=== PATIENT | female | born 1975 | race Caucasian/White ===

== ENCOUNTER 2018-09-29 13:06 | Emergency (ER) | payer OTHER ==
[~2018-09-29] VITALS: Ht 175.3 cm; Wt 77.3 kg
[2018-09-29] MEDS ORDERED: LEVEMIR FLEX100 U/ML SQ (14:16)
[2018-09-29] MEDS ORDERED: NOVOLOG 100U100 U/M1 SQ (14:16)
[2018-09-29] MEDS ORDERED: VICTOZA6 MG/ML SQ (14:17)
[2018-09-29] MEDS ORDERED: GLUCOPHAGE500 MG/TAB PO (14:18)
[2018-09-29] MEDS ORDERED: SYNTHROID0.05 MG/TA PO (14:18)
[2018-09-29] MEDS ORDERED: PROAIR HFA0.09 MG/AC IH (15:03)
[2018-09-29] MEDS ORDERED: ZOFRAN ODT4 MG PO (15:03)
[2018-09-29] MEDS ORDERED: TAMIFLU 75MG75 MG PO (15:03)
[2018-09-29 15:14] VITALS: BP 120/70; PULSE 115; TEMP 101
== END 2018-09-29 15:14 | disposition home or self-care (01) ==
LOC: COL.ER 13:06
DX: J10.1 Influenza due to other identified influenza virus with other respiratory manifestations (principal); E78.5 Hyperlipidemia, unspecified; E11.9 Type 2 diabetes mellitus without complications; F17.210 Nicotine dependence, cigarettes, uncomplicated; Z79.4 Long term (current) use of insulin

== ENCOUNTER 2019-07-10 20:55 | Emergency (ER) | payer OTHER ==
[~2019-07-10] VITALS: Ht 177.8 cm; Wt 78.6 kg
[~2019-07-10 20:55] MED LIST: GLUCOPHAGE500 MG/TAB PO; LEVEMIR FLEX100 U/ML SQ; NOVOLOG 100U100 U/M1 SQ; PROAIR HFA0.09 MG/AC IH; SYNTHROID0.05 MG/TA PO; TAMIFLU 75MG75 MG PO; VICTOZA6 MG/ML SQ; ZOFRAN ODT4 MG PO
[2019-07-10] MEDS ORDERED: TRULICITY1.5 MG/0.5 SQ (21:04)
[2019-07-10 21:13] LABS: BASO # 0.1 (0.0-0.2); BASO % 0.6 % (0.0-2.0); EOS # 0.2 (0.0-0.7); EOS % 1.9 % (0-4.0); GRAN # 6.4 (1.4-6.5); GRAN % 59.3 % (42.2-75.2); HEMATOCRIT 41.8 % (37.0-47.0); HEMOGLOBIN 14.5 g/dl (12.5-16.0); LYMPH # 3.5 (1.2-3.4); LYMPH % 31.8 % (20.0-51.0); MEAN CELL VOLUME 92 fl (80.0-100.0); MEAN CORPUSCULAR HEMOGLOBIN 32 pg (27.0-31.0); MEAN CORPUSCULAR HGB CONC 35 g/dl (33.0-37.0); MEAN PLATELET VOLUME 10.7 fl (7.4-10.4); MONO # 0.7 (0.1-0.6); PLATELET COUNT 239 K/mm3 (130-400); RED BLOOD COUNT 4.54 M/mm3 (4.10-5.30); REDCELL DISTRIBUTION WIDTH-CV 12.2 % (11.5-14.5)
[2019-07-10 21:20] LABS: ACETONE,SERUM NEGATIVE
[2019-07-10 21:23] LABS: ALANINE AMINOTRANSFERASE 9 U/L (9-52); ALKALINE PHOSPHATASE 75 U/L (50-136); ANION GAP 9 mmol/L (7-16); AST,SGOT 19 U/L (15-37); BILIRUBIN,TOTAL 0.4 mg/dL (0.0-1.0); BLOOD UREA NITROGEN 10 mg/dL (7-17); C-REACTIVE PROTEIN 2.2 mg/dL (0.0-0.9); CARBON DIOXIDE 24 mmol/L (22-30); CHLORIDE 102 mmol/L (98-107); CREATININE, serum 0.64 (0.52-1.25); GLUCOSE 396 mg/dL (74-106); POTASSIUM 4.2 mmol/L (3.4-5.0); SODIUM 134 mmol/L (137-145); TOTAL PROTEIN 7.4 gm/dL (6.4-8.2)
[2019-07-10 22:10] LABS: COLLECTION METHOD CLEAN CATCH
[2019-07-10 22:16] LABS: PH 5 (5-8); SQUAMOUS EPITHELIAL 0-2 /hpf; URINE APPEARANCE Clear; URINE BACTERIA None Seen /hpf; URINE BILIRUBIN Negative (NEGATIVE); URINE BLOOD Negative (NEGATIVE); URINE COLOR Yellow; URINE GLUCOSE 3+ (NEGATIVE); URINE KETONE Negative (NEGATIVE); URINE LEUKOCYTE ESTERASE Negative (NEGATIVE); URINE NITRATE Negative (NEGATIVE); URINE PROTEIN(semi-quant) Negative (NEGATIVE); URINE RBC 0-2 /hpf; URINE UROBILINOGEN Negative (NEGATIVE)
[2019-07-10 22:59] VITALS: BP 118/75; PULSE 87; TEMP 98
== END 2019-07-10 23:03 | disposition home or self-care (01) ==
LOC: COL.ER 20:55
PROVIDERS: Emergency Medicine
DX: E11.9 Type 2 diabetes mellitus without complications (principal); F17.210 Nicotine dependence, cigarettes, uncomplicated
CPT/HCPCS: J1815; J7030

== ENCOUNTER 2019-11-14 22:58 | Inpatient (IN) | payer OTHER ==
[~2019-11-14] VITALS: Ht 175.3 cm; Wt 79.9 kg
[~2019-11-14 22:58] MED LIST changes: +ASPIRIN 32325 MG/TAB PO; +CELEXA40 MG PO; +DESYREL 50MG50 MG PO; +DOXYCYCLINE 10100 MG PO; +FLAGYL500 MG PO; +FLEXERIL 1010 MG/TAB PO; +FLONASEALLERGY NS; +GLUCOPHAGE1000 MG PO; +GLUCOTROL 5M5 MG/TAB PO; +LOPID 600M600 MG/TAB PO; +MINIPRESS 1M1 MG/CAP PO; +MOBIC15 MG PO; +NAPROSYN500 MG PO; +NORCO 325 MG-51 TAB PO; +TRULICITY1.5 MG/0.5 SQ; +ZYRTEC 10MG10 MG PO
[2019-11-14 23:58] LABS: BASO # 0.1 (0.0-0.2); BASO % 0.3 % (0.0-2.0); EOS # 0.2 (0.0-0.7); GRAN # 14.6 (1.4-6.5); GRAN % 81.2 % (42.2-75.2); HEMATOCRIT 42.1 % (37.0-47.0); HEMOGLOBIN 14.7 g/dl (12.5-16.0); LYMPH % 11.3 % (20.0-51.0); MEAN CELL VOLUME 92 fl (80.0-100.0); MEAN CORPUSCULAR HEMOGLOBIN 32 pg (27.0-31.0); MEAN CORPUSCULAR HGB CONC 35 g/dl (33.0-37.0); MEAN PLATELET VOLUME 9.7 fl (7.4-10.4); MONO % 5.6 % (1.7-9.3); PLATELET COUNT 337 K/mm3 (130-400); RED BLOOD COUNT 4.59 M/mm3 (4.10-5.30); REDCELL DISTRIBUTION WIDTH-CV 11.8 % (11.5-14.5)
[2019-11-15] VITALS (11 sets, daily range): BP systolic 98–147; BP diastolic 53–75; PULSE 82–112; TEMP 98.7–103
[2019-11-15 00:14] LABS: ACETONE,SERUM NEGATIVE
[2019-11-15 00:16] LABS: ALANINE AMINOTRANSFERASE 15 U/L (4-34); ALBUMIN 3.9 gm/dL (3.5-5.0); ALKALINE PHOSPHATASE 117 U/L (50-136); ANION GAP 10 mmol/L (7-16); AST,SGOT 24 U/L (15-37); BILIRUBIN,TOTAL 0.5 mg/dL (0.0-1.0); BLOOD UREA NITROGEN 11 mg/dL (7-17); CARBON DIOXIDE 23 mmol/L (22-30); CHLORIDE 97 mmol/L (98-107); CREATININE, serum 0.53 (0.52-1.25); SODIUM 130 mmol/L (137-145)
[2019-11-15 00:17] LABS: GLUCOSE 511 mg/dL (74-106)
[2019-11-15 00:26] LABS: C-REACTIVE PROTEIN 25.8 mg/dL (0.0-0.9)
[2019-11-15 03:34] LABS: PROTHROMBIN TIME 11.9 SECONDS (9.7-12.8)
--- NOTE | 2019-11-15 05:26 | NUR ---
Report received from Catalina at 0335. Patient arrived in ICU at 0400 via wheelchair. Patient pleasant and cooperative, moved self to bed.
--- NOTE | 2019-11-15 08:22 | NUR ---
Report received from Thao LEA and care resumed. Assessment complete. Pt with temp of [address]ed to call Dr Mcdaniel, no answer and unable to leave message at this time. No am labs ordered as well. Will continue to follow.
[2019-11-15 08:49] LABS: MEAN CELL VOLUME 92 fl (80.0-100.0); MEAN CORPUSCULAR HGB CONC 34 g/dl (33.0-37.0); MEAN PLATELET VOLUME 9.9 fl (7.4-10.4); PLATELET COUNT 320 K/mm3 (130-400); RED BLOOD COUNT 3.83 M/mm3 (4.10-5.30); REDCELL DISTRIBUTION WIDTH-CV 11.9 % (11.5-14.5)
[2019-11-15 08:50] LABS: HEMATOCRIT 35.4 % (37.0-47.0); HEMOGLOBIN 12.1 g/dl (12.5-16.0); MEAN CORPUSCULAR HEMOGLOBIN 32 pg (27.0-31.0)
[2019-11-15 08:55] LABS: ALBUMIN 3.3 gm/dL (3.5-5.0); BILIRUBIN,TOTAL 0.4 mg/dL (0.0-1.0); CALCIUM 8.7 mg/dL (8.4-10.2); CREATININE, serum 0.55 (0.52-1.25); POTASSIUM 3.5 mmol/L (3.4-5.0)
--- NOTE | 2019-11-15 09:57 | NUR ---
Vancomycin Initial Dosing Pharmacy Note Ordering provider: MD Jonas Indication/duration: vulvular abcess Relevant comorbidities: DM LABS: WBC 18, SCr 0.53, CrCl > 100, micro from 11/02: GBS, S.aureus, Acinetobacter lwoffi Recommendation: vancomycin ~12 mg/kg Loading dose: 2 g given in ED/ICU Maintenance dose: 1 gram every 12 hours Trough goal: 15 ug/mL. trough 11/16 @ 0430
--- NOTE | 2019-11-15 12:16 | NUR ---
Pt to OR at this time. Report called to Izzy LEA on surgical floor. Pt to transfer to room 348 post op.
--- NOTE | 2019-11-15 19:28 | NUR ---
Patient has done well post op. Resting now. Pain managed with PO percocet & motrin. She has tolerated diabetic diet, treated with Insulin per orders. Denies nausea. Patient was up to the bathroom & voided. Mesh underwear & pad on. Ivf & antibioitcs to Shanice per orders. Scds. Bedside report to Karen LEA
--- NOTE | 2019-11-15 19:30 | NUR ---
Report received. Assumed care for weight shifter. Assessment complete. VS stable. A&Ox3. Stand by assist to bathroom. Very tearful-states the pain is out of control-requesting pain medication change. Right labia slightly swollen-packing in place. Small amount of blood drainage noted to pad. Denies shortness of breath/nausea. Rating pain 7/10 on pain scale states it feels like burning/throbbing and sharpness continuously. Dr Lopez notified of inadequate pain control with current Percocet order-new orders received for Davis. Denies needs. Instructed on need for stool specimen. Verbalizes understanding. WIll monitor.
[2019-11-15 22:46] LABS: CLOSTRIDIUM DIFF A/B NEG; CLOSTRIDIUM DIFF A/B INTERP No C.diff present
[2019-11-16] VITALS (661 sets, daily range): BP systolic 101–139; BP diastolic 50–72; PULSE 80–119; TEMP 97.8–102.6; O2SAT 80–100
--- NOTE | 2019-11-16 08:00 | NUR ---
Patient was assessed by this nurse with the following data at 8:00 AM: Alert & Oriented x 4; able to move extremities; hand secure software assessor were equal; Right labia had edema; Temp was warm, dry and normal; Had a regular heart rhythm, rate and sound; pulses were easy to palpate to both dorsalis pedis and radial pulses; Had good cap refill; Respirations were unlabored, normal rate and depth and patter was regular and unlabored; lung allen clear; abdomen was rounded and soft and all bowel sounds were audible; she had had no nausea and was passing gas; she was voiding with no difficulty; She had crusting to all over skin in spots due to her psoriasis; Right labia had the packing in place.
[2019-11-16 08:01] LABS: BASO % 0.4 % (0.0-2.0); EOS # 0.2 (0.0-0.7); GRAN # 7.6 (1.4-6.5); GRAN % 73.2 % (42.2-75.2); HEMOGLOBIN 10.8 g/dl (12.5-16.0); LYMPH # 1.9 (1.2-3.4); LYMPH % 18.1 % (20.0-51.0); MEAN CELL VOLUME 95 fl (80.0-100.0); MEAN CORPUSCULAR HEMOGLOBIN 31 pg (27.0-31.0); MEAN CORPUSCULAR HGB CONC 33 g/dl (33.0-37.0); MEAN PLATELET VOLUME 9.9 fl (7.4-10.4); MONO # 0.6 (0.1-0.6); MONO % 5.8 % (1.7-9.3); PLATELET COUNT 305 K/mm3 (130-400); RED BLOOD COUNT 3.49 M/mm3 (4.10-5.30); REDCELL DISTRIBUTION WIDTH-CV 12.1 % (11.5-14.5)
[2019-11-16 08:03] LABS: HEMATOCRIT 33.2 % (37.0-47.0)
[2019-11-16 08:18] LABS: ALBUMIN 2.8 gm/dL (3.5-5.0); BILIRUBIN,TOTAL 0.3 mg/dL (0.0-1.0); CALCIUM 8.2 mg/dL (8.4-10.2); CREATININE, serum 0.5 (0.52-1.25); POTASSIUM 3.2 mmol/L (3.4-5.0); TOTAL PROTEIN 6.1 gm/dL (6.4-8.2)
[2019-11-16 09:08] LABS: MAGNESIUM 1.7 mg/dL (1.6-2.3)
[2019-11-16 09:30] LABS: ARTERIAL BLD GAS O2 SATURATION 89.3 % (92-100); ARTERIAL BLOOD GAS BASE EXCESS -3.2 (-2-2); ARTERIAL BLOOD GAS HCO3 20.1 meq/L (22-26); ARTERIAL BLOOD GAS PCO2 30.9 mmHg (35-45); ARTERIAL BLOOD GAS PO2 52.4 mmHg (80-100); ARTERIAL BLOOD GAS pH 7.43 (7.35-7.45)
[2019-11-16 09:39] LABS: TSH w REFLEX 7.48 uIU/mL (0.465-4.680)
[2019-11-16 10:09] LABS: CREATINE KINASE 174 U/L (30-135); LACTATE DEHYDROGENASE 558 U/L (313-618)
--- NOTE | 2019-11-16 10:38 | NUR ---
Patient was seen by OB this morning and they did a dressing removal. After removal of dressing, this nurse received a call from Tele with report of irregular HR. This was communicated to Charge Nurse of which called the hospitalist to provide an update. VS unstable with elevated HR and BP as well has a temp of 100.0. Patient was given Morphine for pain with little effect. Patient began having chills and pain. Dr. Burnette saw patient see new orders given for more pain pills and for anxiety. Patient tolerated well. Temp then went up to 102.6 and this was reported to Dr. Burnette and tylenol was ordered and given to patient. This nurse then received orders for her to be transferred to ICU. Patient was transported with clean sheet over her, she wore a mask over her oxygen rebreather mask. Patient had a low Pulse Ox reading and was on 15 Liters Mask Rebreather upon transfer. Patient's belongins including her dentures, phone machine silk screen printer, phone and clothing and notes were sent with her to ICU. This nurse gave report to ICU #4 nurse.
--- NOTE | 2019-11-16 10:58 | NUR ---
Notified Dr. Lopez's clinic nurse re: testing for COVID. She reports she will pass message on to Dr. Lopez.
[2019-11-16 11:41] LABS: COLLECTION METHOD CATHETER
[2019-11-16 11:48] LABS: MUCOUS Present /lpf; PH 5 (5-8); SQUAMOUS EPITHELIAL 0-2 /hpf; URINE APPEARANCE Hazy; URINE BACTERIA None Seen /hpf; URINE BILIRUBIN Negative (NEGATIVE); URINE BLOOD Negative (NEGATIVE); URINE COLOR Yellow; URINE GLUCOSE Negative (NEGATIVE); URINE KETONE Negative (NEGATIVE); URINE LEUKOCYTE ESTERASE Negative (NEGATIVE); URINE NITRATE Negative (NEGATIVE); URINE PROTEIN(semi-quant) Negative (NEGATIVE); URINE RBC 0-2 /hpf; URINE UROBILINOGEN Negative (NEGATIVE)
[2019-11-16 12:11] LABS: TRICYCLIC ANTIDEPRESS URINE NEGATIVE
--- NOTE | 2019-11-16 13:10 | NUR ---
SW contacted the patient to discuss discharge plan. The patient lives in [place] with her son, Jean-Claude Luna (ph#[phone]), and Jean-Claude's girlfriend. She reports independence with ADLs and does not have any DME. The patient receives primary care at the [facility] and states that she believes she is on the blue team. She receives her medications at [facility] and she reports no difficulties obtaining her meds. The patient does not have advanced directives completed. She is not . She states that she has two children. Jean-Claude and her daughter Valerie. She states that Valerie lives in [place]. The patient plans to return back home with her son upon discharge. The patient is a PUI for [facility]. SW to continue to follow.
--- NOTE | 2019-11-16 19:18 | NUR ---
Report given to Chely LEA and care transfered.
[2019-11-16 21:16] LABS: POTASSIUM 4.2 mmol/L (3.4-5.0)
--- NOTE | 2019-11-16 23:15 | NUR ---
patient called out complaining of SOB, was desatting with O2 saturation at 80% and heart rate in the low 100's pt complaining of left shoulder pain. patient stated she was trying to move in bed and got short of breath and anxious. CAlled RT who gave her two puffs of albuterol. She also was c/o of labial pain so she got some prn IV morphine. Michelle was called and notified of situation, was the doctor I spoke to. He said to continue to monitor and to call back if she got worse. I did not feel comfortable with that so SANTI Glass was called and she ordered a CT of chest and an ABG.
[2019-11-17] VITALS (1080 sets, daily range): BP systolic 92–141; BP diastolic 50–77; PULSE 81–112; TEMP 98.6–100.2; O2SAT 38–100
[2019-11-17 00:29] LABS: ARTERIAL BLD GAS O2 SATURATION 92.7 % (92-100); ARTERIAL BLD GAS TCO2 CT 23.7; ARTERIAL BLOOD GAS BASE EXCESS -0.9 (-2-2); ARTERIAL BLOOD GAS HCO3 22.6 meq/L (22-26); ARTERIAL BLOOD GAS PCO2 34.9 mmHg (35-45); ARTERIAL BLOOD GAS PO2 62.5 mmHg (80-100); ARTERIAL BLOOD GAS pH 7.43 (7.35-7.45)
[2019-11-17 01:04] LABS: BASO % 0.4 % (0.0-2.0); EOS # 0.1 (0.0-0.7); EOS % 1.3 % (0-4.0); GRAN # 7.7 (1.4-6.5); GRAN % 85.6 % (42.2-75.2); HEMATOCRIT 46.5 % (37.0-47.0); LYMPH # 0.7 (1.2-3.4); LYMPH % 7.3 % (20.0-51.0); MEAN CELL VOLUME 94 fl (80.0-100.0); MEAN CORPUSCULAR HEMOGLOBIN 31 pg (27.0-31.0); MEAN CORPUSCULAR HGB CONC 33 g/dl (33.0-37.0); MEAN PLATELET VOLUME 9.4 fl (7.4-10.4); MONO # 0.5 (0.1-0.6); PLATELET COUNT 255 K/mm3 (130-400); RED BLOOD COUNT 4.95 M/mm3 (4.10-5.30); REDCELL DISTRIBUTION WIDTH-CV 12.1 % (11.5-14.5)
[2019-11-17 01:08] LABS: HEMOGLOBIN 15.5 g/dl (12.5-16.0)
[2019-11-17 01:24] LABS: ALBUMIN 2.8 gm/dL (3.5-5.0); BILIRUBIN,TOTAL 0.4 mg/dL (0.0-1.0); CALCIUM 8.6 mg/dL (8.4-10.2); CREATININE, serum 0.46 (0.52-1.25); POTASSIUM 3.8 mmol/L (3.4-5.0)
[2019-11-17 02:00] LABS: TROPONIN-I < 0.012 ng/mL (0.000-0.035)
--- NOTE | 2019-11-17 02:00 | NUR ---
patient back from CT of chest. SANTI Glass called to discuss case with him. We gave 40mg of iv lasix, some ativan and will continue to galilea.
--- NOTE | 2019-11-17 06:20 | NUR ---
Kiera has had low blood pressures with systolics in the 80-90's and MAPS below 65, Maria Luisa HANCOCK was contacted. Patient otherwise stable with HR in the 80's, now on 5L oxymask and breathing at a rate in the 20's. Will now start patient on a levophed gtt.
[2019-11-17 06:25] LABS: ARTERIAL BLD GAS O2 SATURATION 95.8 % (92-100); ARTERIAL BLD GAS TCO2 CT 24.6; ARTERIAL BLOOD GAS BASE EXCESS -0.2 (-2-2); ARTERIAL BLOOD GAS HCO3 23.5 meq/L (22-26); ARTERIAL BLOOD GAS PCO2 35.8 mmHg (35-45); ARTERIAL BLOOD GAS PO2 76.2 mmHg (80-100); ARTERIAL BLOOD GAS pH 7.44 (7.35-7.45)
[2019-11-17 07:02] LABS: ALBUMIN 3.1 gm/dL (3.5-5.0); BILIRUBIN,TOTAL 0.5 mg/dL (0.0-1.0); CALCIUM 8.7 mg/dL (8.4-10.2); CREATININE, serum 0.57 (0.52-1.25); PHOSPHOROUS 3.7 mg/dL (2.5-4.5); POTASSIUM 3.3 mmol/L (3.4-5.0); TOTAL PROTEIN 6.6 gm/dL (6.4-8.2)
[2019-11-17 07:05] LABS: BASO # 0.1 (0.0-0.2); BASO % 0.4 % (0.0-2.0); EOS # 0.2 (0.0-0.7); EOS % 1.9 % (0-4.0); GRAN # 9.4 (1.4-6.5); LYMPH # 1.4 (1.2-3.4); LYMPH % 12.1 % (20.0-51.0); MEAN CELL VOLUME 96 fl (80.0-100.0); MEAN CORPUSCULAR HGB CONC 33 g/dl (33.0-37.0); MEAN PLATELET VOLUME 9.8 fl (7.4-10.4); MONO # 0.8 (0.1-0.6); MONO % 6.3 % (1.7-9.3); PLATELET COUNT 335 K/mm3 (130-400); RED BLOOD COUNT 3.51 M/mm3 (4.10-5.30); REDCELL DISTRIBUTION WIDTH-CV 12.2 % (11.5-14.5)
[2019-11-17 07:08] LABS: HEMATOCRIT 33.8 % (37.0-47.0); HEMOGLOBIN 11.1 g/dl (12.5-16.0); MEAN CORPUSCULAR HEMOGLOBIN 32 pg (27.0-31.0)
--- NOTE | 2019-11-17 07:38 | NUR ---
Vancomycin Follow-up Pharmacy Note Current regimen: vancomycin 1g q12h Vancomycin trough: 5.2 Adjustments: give additional 500 mg now and increase to vancomycin 1.5 g q8h.
--- NOTE | 2019-11-17 07:45 | NUR ---
report given to LEONORA Izquierdo.
--- NOTE | 2019-11-17 11:45 | NUR ---
Addition to existing note at 1145: Pt diaphoretic. No fever noted, multiple measurements taken, blood glucose checked and within normal limits.
--- NOTE | 2019-11-17 11:45 | NUR ---
Pt respiratory rate between 25-35, pt states no distress, no use of accessory muslces used. When pt resting and not moving SpO2 between 90-94% on 5L-NC; during activity (sitting up in bed to reach for water jug) pt HR increases from 90's to 110's and SpO2 decreases to (lowest reached..) 84% with 2-3min required for SpO2 to return to 90-94% HiFlow Nasal Cannula applied at 10L/min - SpO2 remaining >91% even with aforementioned activity. Patience,RT on unit MD Zander and MD Jonas on unit and both aware
--- NOTE | 2019-11-17 12:20 | NUR ---
MD Clay called for antibiotic stewardship consultation - no answer - voice message left
--- NOTE | 2019-11-17 13:30 | NUR ---
MD Jonas informed pt tachypnic and dyspnic at rest that worsens with activity and that pt states "I feel okay, I feel a little short of breath, similar to how I have felt for the past week, and I feel a little anxious too". also informed SpO2 86-92% on 12L/min HiFlo nasal cannula. Orders to be imputed by
--- NOTE | 2019-11-17 14:58 | NUR ---
MD Zander notified: COVID result should be back by 1630, 13L/min HiFlow with SpO2 86-90% at rest, ativan and lasix have been administered, levophed remains on standby with last BP 130/70
--- NOTE | 2019-11-17 15:34 | NUR ---
HiFlo NC at 15L/min now, SpO2 now up to 95-96%, respiratory rate decreased to 18-23/min
--- NOTE | 2019-11-17 16:04 | NUR ---
17min conversation with pt's adult 19year old son. Plan of care discussed and current treatment covered. Raz states he is the closest to pt. Pt's daughter moved out 4 years ago, and pt has not seen her father since 2010. Raz stated "I dont know who would make medical decisions for my mom if she becomes unable to speak for herself" when asked if pt has a DPOA for healthcare decision. All questions answered
--- NOTE | 2019-11-17 17:55 | NUR ---
With Patience,RT in room pt stated if she becomes unable to speak for herself, she would like her son Raz and her daughter to make medical decisions for her.
--- NOTE | 2019-11-17 18:00 | NUR ---
Pt placed on BiPAP, tolerating well. Tachypnea continues. Prior to placing on BiPAP, Pt states "I feel pretty good, I still feel short of breath but it is not any worse than I have been feeling for the last several days. It is actually better now, that im on oxygen. But I am having pain 'down there'" refering to her labia. Labia incision stable, rashad pad changed, pillow between knees for comfort.
[2019-11-17 18:20] LABS: MAGNESIUM 1.7 mg/dL (1.6-2.3); POTASSIUM 3.8 mmol/L (3.4-5.0)
--- NOTE | 2019-11-17 19:35 | NUR ---
Bedside report received from LEONORA Izquierdo
--- NOTE | 2019-11-17 20:00 | NUR ---
Patient resting in bed at this time watching TV on the BiPAP. Patient is tolerating BiPAP well and O2 sats are stable. Patient is A+O x4. Complaints of mild pain in her labia. Assessment complete. Patient HR and rhythm are regular and tachycardic in the low 100's. Lungs have fine crackles in the upper lobes with diminished bases bilaterally. Bowel sounds active x4. Genital area has some blood drainage present, area cleaned with cleansing wipes. Packing remains in place, incision MELISSA. Patient has no current needs at this time. Will continue to monitor. Call light within reach.
[2019-11-17 20:51] LABS: ARTERIAL BLD GAS TCO2 CT 24.6; ARTERIAL BLOOD GAS BASE EXCESS -0.7 (-2-2); ARTERIAL BLOOD GAS HCO3 23.5 meq/L (22-26); ARTERIAL BLOOD GAS PCO2 37.3 mmHg (35-45); ARTERIAL BLOOD GAS PO2 102.5 mmHg (80-100); ARTERIAL BLOOD GAS pH 7.42 (7.35-7.45)
[2019-11-18] VITALS (1013 sets, daily range): BP systolic 96–130; BP diastolic 56–70; PULSE 97–106; TEMP 98.6–98.8; O2SAT 79–100
[2019-11-18 05:15] LABS: ARTERIAL BLD GAS O2 SATURATION 96.5 % (92-100); ARTERIAL BLD GAS TCO2 CT 24.8; ARTERIAL BLOOD GAS BASE EXCESS -0.1 (-2-2); ARTERIAL BLOOD GAS HCO3 23.7 meq/L (22-26); ARTERIAL BLOOD GAS PCO2 35.6 mmHg (35-45); ARTERIAL BLOOD GAS PO2 83.4 mmHg (80-100); ARTERIAL BLOOD GAS pH 7.44 (7.35-7.45)
[2019-11-18 06:49] LABS: BASO % 0.3 % (0.0-2.0); EOS # 0.3 (0.0-0.7); EOS % 2.8 % (0-4.0); GRAN # 9.1 (1.4-6.5); GRAN % 78.7 % (42.2-75.2); HEMOGLOBIN 10.1 g/dl (12.5-16.0); LYMPH # 1.3 (1.2-3.4); LYMPH % 10.9 % (20.0-51.0); MEAN CELL VOLUME 96 fl (80.0-100.0); MEAN CORPUSCULAR HEMOGLOBIN 32 pg (27.0-31.0); MEAN CORPUSCULAR HGB CONC 33 g/dl (33.0-37.0); MEAN PLATELET VOLUME 9.5 fl (7.4-10.4); MONO # 0.8 (0.1-0.6); PLATELET COUNT 365 K/mm3 (130-400); RED BLOOD COUNT 3.18 M/mm3 (4.10-5.30)
[2019-11-18 06:51] LABS: HEMATOCRIT 30.5 % (37.0-47.0)
[2019-11-18 06:59] LABS: ALBUMIN 3.1 gm/dL (3.5-5.0); BILIRUBIN,TOTAL 0.7 mg/dL (0.0-1.0); CALCIUM 8.9 mg/dL (8.4-10.2); CREATININE, serum 0.5 (0.52-1.25); MAGNESIUM 1.8 mg/dL (1.6-2.3); POTASSIUM 3.8 mmol/L (3.4-5.0); TOTAL PROTEIN 6.6 gm/dL (6.4-8.2)
--- NOTE | 2019-11-18 07:23 | NUR ---
Bedside report given to LEONORA Izquierdo
--- NOTE | 2019-11-18 14:41 | NUR ---
The patient's COVID results came back negative. SW to continue to follow as needed.
--- NOTE | 2019-11-18 18:05 | NUR ---
Cici care and complete bed bath provided including hair shampoo. Pt has started menstrual cycle.
--- NOTE | 2019-11-18 19:22 | NUR ---
Bedside report received from LEONORA Izquierdo.
--- NOTE | 2019-11-18 20:00 | NUR ---
Patient resting in bed on BiPAP. Complaints of mild pain to her labia, but is not requesting any pain meds at this time. Assessment complete with no changes from previous shift. Provided pericare and changed peripad. Patient has no further needs at this time. Will continue to monitor. Call light within reach.
[2019-11-19] VITALS (507 sets, daily range): BP systolic 95–122; BP diastolic 51–83; PULSE 94–102; TEMP 98.4–99.5; O2SAT 79–100
--- NOTE | 2019-11-19 | NUR ---
Patient to continues to rest. Comes off of biPAP to 15L HFNC periodically to drink or eat. No current needs. Assessment shows no changes from previous exams. Will continue to monitor. Call light within reach.
--- NOTE | 2019-11-19 05:00 | NUR ---
Patient requests to come off BiPAP for a little while. placed on HFNC. Pericare provided and peripad changed. Assisted patient with repositioning. Fresh water provided. No further needs. Will continue to monitor. Call light within reach.
[2019-11-19 06:03] LABS: ARTERIAL BLD GAS O2 SATURATION 97.2 % (92-100); ARTERIAL BLD GAS TCO2 CT 25.7; ARTERIAL BLOOD GAS BASE EXCESS 0.3 (-2-2); ARTERIAL BLOOD GAS HCO3 24.5 meq/L (22-26); ARTERIAL BLOOD GAS PO2 92.1 mmHg (80-100); ARTERIAL BLOOD GAS pH 7.43 (7.35-7.45)
[2019-11-19 06:51] LABS: CALCIUM 9.1 mg/dL (8.4-10.2); CREATININE, serum 0.51 (0.52-1.25); MAGNESIUM 1.9 mg/dL (1.6-2.3); PHOSPHOROUS 4.9 mg/dL (2.5-4.5); POTASSIUM 3.6 mmol/L (3.4-5.0)
--- NOTE | 2019-11-19 07:47 | NUR ---
Bedside report given to LEONORA Traore
--- NOTE | 2019-11-19 08:00 | NUR ---
Shift assessment complete at this time. Plan of care reviewed at bedside with patient. Additional time taken to address any other needs or concerns. Vitals stable at this time. Pt reports mild/moderate pain at 4/10 severity, will administer scheduled motrin and then PRN norco after if pain still persists. Bed in low position, call light within reach, will continue to monitor.
--- NOTE | 2019-11-19 12:00 | NUR ---
Shift reassessment complete at this time. No changes from previous assessment noted at this time. Vitals stable. Pt reports no pain or discomforts. Bed in low position, call light within reach. Will continue to monitor.
--- NOTE | 2019-11-19 13:17 | NUR ---
ALANA attempted to consult Financial Counselor, Jazmyn, for a Medicaid application. ALANA left her a voicemail.
--- NOTE | 2019-11-19 16:00 | NUR ---
Shift reassessment complete at this time. No changes from previous assessment noted at this time. Pt denies pain or any other discomforts. Vitals stable at this time. Bed in low position, call light within reach, will continue to monitor.
--- NOTE | 2019-11-19 19:10 | NUR ---
RECEIVED REPORT FROM LEONORA DELEON. PT LYING IN BED ON 12L HFNC. VSS. CALL LIGHT WITHIN REACH. FC PATENT AND DRAINGING TO GRAVITY.
--- NOTE | 2019-11-19 19:30 | NUR ---
Bedside report given to LEONORA Doan.
[2019-11-20] VITALS (1092 sets, daily range): BP systolic 95–135; BP diastolic 62–73; PULSE 82–95; TEMP 98–98.8; O2SAT 61–100
--- NOTE | 2019-11-20 06:30 | NUR ---
SINCCE 0300, FIO2 ON BIPAP HAS DECREASED BY 5% INCREMENTS AND MONITORED CLOSELY BY RN AND RT. AT THIS TIME PT IS DOWN TO FIO2 OF 35% ON BIPAP. POX MAINTAINING >92%. VSS. CALL LIGHT WITHIN REACH. WILL CONTINUE TO MONITOR CLOSELY.
[2019-11-20 06:48] LABS: BASO % 0.3 % (0.0-2.0); EOS # 0.3 (0.0-0.7); EOS % 5.3 % (0-4.0); GRAN # 4.1 (1.4-6.5); GRAN % 63.6 % (42.2-75.2); LYMPH # 1.4 (1.2-3.4); LYMPH % 22.3 % (20.0-51.0); MEAN CELL VOLUME 97 fl (80.0-100.0); MEAN CORPUSCULAR HGB CONC 32 g/dl (33.0-37.0); MEAN PLATELET VOLUME 9.4 fl (7.4-10.4); MONO # 0.5 (0.1-0.6); MONO % 7.9 % (1.7-9.3); PLATELET COUNT 450 K/mm3 (130-400); RED BLOOD COUNT 3.06 M/mm3 (4.10-5.30); REDCELL DISTRIBUTION WIDTH-CV 12.3 % (11.5-14.5)
[2019-11-20 06:51] LABS: HEMATOCRIT 29.8 % (37.0-47.0); HEMOGLOBIN 9.5 g/dl (12.5-16.0); MEAN CORPUSCULAR HEMOGLOBIN 31 pg (27.0-31.0)
[2019-11-20 06:53] LABS: ALBUMIN 3.1 gm/dL (3.5-5.0); BILIRUBIN,TOTAL 0.5 mg/dL (0.0-1.0); CALCIUM 9.3 mg/dL (8.4-10.2); CREATININE, serum 0.55 (0.52-1.25); POTASSIUM 3.6 mmol/L (3.4-5.0); TOTAL PROTEIN 6.8 gm/dL (6.4-8.2)
--- NOTE | 2019-11-20 08:00 | NUR ---
Shift assessment complete at this time. Plan of care reviewed at bedside with patient. Additional time taken to address any other needs or concerns. Vitals stable at this time. Pt denies pain or any additional discomforts. Bed in low position, call light within reach, will continue to monitor.
--- NOTE | 2019-11-20 12:00 | NUR ---
Pt resting comfortably in bed. Denies pain or any other discomforts. Vitals stable at this time. Bed in low position, call light within reach, will continue to monitor.
--- NOTE | 2019-11-20 13:48 | NUR ---
ALANA contacted Financial Counselor, Sidney, about Medicaid howard. Sidney reports that they can meet and complete an application with the patient when she transfers up to the medical floor. ALANA asked the PAULY, Altagracia, for PT/OT to be ordered. The patient walked 0 ft with therapy. OT is recommending that she may be post-acute rehab upon discharge, depending on her level of debility. IPR was consulted. ALANA contacted the [facility] to inquire about post-acute rehab coverage. The receptionist secretary reports that the patient's PCP is Dr. Frank Crocker at the [facility]. ALANA attempted to contact the [facility]. ALANA left them a voicemail.
--- NOTE | 2019-11-20 14:36 | NUR ---
ALANA received a phone call from the social media director at the [facility], Tram (ph#[phone], ext.[phone]). Tram reports that she will need to check with her team to inquire if the patient has post-acute rehab benefits and if they would approve for a post-acute rehab stay. She states she will contact SW back once she has an answer or if they need further information. ALANA to continue to follow.
--- NOTE | 2019-11-20 19:05 | NUR ---
RECEIVED REPORT FROM LEONORA DELEON. PT SITTING UP IN BED WATCHING TV ON HFNC AT 7L. PT REQUESTS TO BE PLACED ON BIPAP AT THIS TIME, FIO2 NOTED TO BE AT 40%. CALL LIGHT WITHIN REACH. FC PATENT AND DRAINING TO GRAVITY.
--- NOTE | 2019-11-20 19:06 | NUR ---
Report given to LEONORA Doan.
[2019-11-21] VITALS (858 sets, daily range): BP systolic 113–142; BP diastolic 66–77; PULSE 65–90; TEMP 97.9–98.5; O2SAT 81–100
[2019-11-21 05:15] LABS: BASO % 0.5 % (0.0-2.0); EOS # 0.5 (0.0-0.7); GRAN # 3.3 (1.4-6.5); GRAN % 58.3 % (42.2-75.2); LYMPH # 1.4 (1.2-3.4); LYMPH % 24.1 % (20.0-51.0); MEAN CELL VOLUME 98 fl (80.0-100.0); MEAN CORPUSCULAR HGB CONC 32 g/dl (33.0-37.0); MEAN PLATELET VOLUME 9.1 fl (7.4-10.4); MONO # 0.5 (0.1-0.6); MONO % 8.4 % (1.7-9.3); PLATELET COUNT 469 K/mm3 (130-400); RED BLOOD COUNT 3.08 M/mm3 (4.10-5.30); REDCELL DISTRIBUTION WIDTH-CV 12.3 % (11.5-14.5)
[2019-11-21 05:23] LABS: HEMATOCRIT 30.3 % (37.0-47.0); HEMOGLOBIN 9.8 g/dl (12.5-16.0); MEAN CORPUSCULAR HEMOGLOBIN 32 pg (27.0-31.0)
[2019-11-21 05:29] LABS: CALCIUM 9.1 mg/dL (8.4-10.2); CREATININE, serum 0.49 (0.52-1.25); POTASSIUM 3.6 mmol/L (3.4-5.0)
--- NOTE | 2019-11-21 16:18 | NUR ---
Report called to medical. Pt and belongings transferred to Medical room 318 acc by RN.
--- NOTE | 2019-11-21 19:52 | NUR ---
Patient resting in bed, eating from late supper tray during change of shift report from day shift nurse, Chantell. No other needs reported during report.
--- NOTE | 2019-11-22 01:00 | NUR ---
PATIENT SLEEPING WITH OBSERVED BREATHING NONLABORED AND EVEN, BIPAP CONTINUES WITH NO ALARMS GOING OFF CURRENTLY. TELE CONTINUES. PATIENT HAS NOT VOIDED AT THIS TIME.
[2019-11-22 04:20] VITALS: BP 138/59; PULSE 95; TEMP 100.3
[2019-11-22 04:25] VITALS: BP 126/64; PULSE 66; TEMP 96.7
[2019-11-22 06:39] LABS: BASO % 0.6 % (0.0-2.0); EOS # 0.5 (0.0-0.7); EOS % 10.1 % (0-4.0); GRAN # 2.4 (1.4-6.5); GRAN % 45.4 % (42.2-75.2); LYMPH # 1.8 (1.2-3.4); LYMPH % 33.8 % (20.0-51.0); MEAN CELL VOLUME 98 fl (80.0-100.0); MEAN CORPUSCULAR HEMOGLOBIN 31 pg (27.0-31.0); MEAN CORPUSCULAR HGB CONC 32 g/dl (33.0-37.0); MEAN PLATELET VOLUME 9.3 fl (7.4-10.4); MONO # 0.5 (0.1-0.6); MONO % 8.9 % (1.7-9.3); PLATELET COUNT 448 K/mm3 (130-400); RED BLOOD COUNT 3.19 M/mm3 (4.10-5.30)
[2019-11-22 06:43] LABS: HEMATOCRIT 31.3 % (37.0-47.0)
[2019-11-22 06:45] LABS: CALCIUM 9.2 mg/dL (8.4-10.2); CREATININE, serum 0.49 (0.52-1.25); MAGNESIUM 2.1 mg/dL (1.6-2.3)
--- NOTE | 2019-11-22 07:23 | NUR ---
PATIENT RESTING IN BED DURING CHANGE OF SHIFT REPORT GIVEN TO DAY SHIFT NURSELAN. BIPAP TAKEN OFF BY DAY SHIFT NURSE.
[2019-11-22 08:55] VITALS: BP 126/61; PULSE 84; TEMP 98.7
--- NOTE | 2019-11-22 11:04 | NUR ---
Patient alert and oriented, answers questions appropriately. See assessment. Incision to right labia with dressing CDI, Dr Sanchez was here approx 1000 and changed dressing. No c/o at this time.
[2019-11-22 12:33] VITALS: BP 137/74; PULSE 76; TEMP 98
[2019-11-22 16:39] VITALS: BP 132/66; PULSE 71; TEMP 97.8
--- NOTE | 2019-11-22 19:00 | NUR ---
PATIENT UP IN ROOM TOLERATED DURING CHANGE OF SHIFT REPORT FROM DAY SHIFT NURSELAN.
[2019-11-22 19:38] VITALS: BP 140/80; PULSE 76; TEMP 98.4
--- NOTE | 2019-11-22 22:30 | NUR ---
PATIENT REPORTS WOUND CARE PACKING CHANGED BY DR SCHREIBER EVERY DAY SINCE RECENT SURGERY. HAD DISCUSSED WITH DR SCHREIBER THAT PATIENT WOULD GET WOUND PACKING CHANGED ONCE DAILY AT DR SCHREIBER'S OFFICE[facility] " BEFORE".
[2019-11-23 00:19] VITALS: BP 141/77; PULSE 70; TEMP 98.2
--- NOTE | 2019-11-23 01:26 | NUR ---
PATIENT RESTING WITH EYES CLOSED, OBSERVED BREATHING NONLABORED AND EVEN. DOES NOT AWAKEN WHEN DOOR TO ROOM IS OPENED BY STAFF. BIPAP ON AND FUNCTIONING.
[2019-11-23 04:19] VITALS: BP 123/68; PULSE 76; TEMP 98.3
--- NOTE | 2019-11-23 06:14 | NUR ---
PATIENT REPORTS WITH LAST VOIDING, HAD NOTICED MORE PACKING "FALLING OUT". R LABIAL SX WOUND PARTIALY OUT PACKING REMOVED, NO ACTIVE DRAINAGE COMING OUT, OLD PACKING WITH SMALL AMOUNT LIGHT COLORED DRAINAGE ON IODAFORM PACKING STRIP OF APPROXIMATELY 4 INCHES IN LENGTH. OBSERVED R LABIA WITH SWELLING, WITH INDURATED SWELLING BUT NO REDNESS OBSERVED WITH PATIENT REPORTING SWELLING "HAS GONE DOWN QUITE A LOT". REPACKED SX WOUND WITH APPROX 4 INCHES OF NEW IODAFORM PACKING, WITH PATIENT VOICING DISCOMFORT DURING REPACKING OF SX WOUND. SEE eMAR FOR MED GIVEN.
--- NOTE | 2019-11-23 06:58 | NUR ---
Patient resting in bed eating breakfast during change of shift report given to day shift nurseMile. No c/o during report.
[2019-11-23 07:14] LABS: HEMOGLOBIN 10.6 g/dl (12.5-16.0); MEAN CELL VOLUME 97 fl (80.0-100.0); MEAN CORPUSCULAR HEMOGLOBIN 31 pg (27.0-31.0); MEAN CORPUSCULAR HGB CONC 32 g/dl (33.0-37.0); MEAN PLATELET VOLUME 9.2 fl (7.4-10.4); PLATELET COUNT 498 K/mm3 (130-400); RED BLOOD COUNT 3.45 M/mm3 (4.10-5.30); REDCELL DISTRIBUTION WIDTH-CV 11.8 % (11.5-14.5)
[2019-11-23 07:20] LABS: HEMATOCRIT 33.3 % (37.0-47.0)
[2019-11-23 07:32] LABS: CALCIUM 9.5 mg/dL (8.4-10.2); CREATININE, serum 0.52 (0.52-1.25); MAGNESIUM 1.9 mg/dL (1.6-2.3); POTASSIUM 3.8 mmol/L (3.4-5.0)
--- NOTE | 2019-11-23 08:00 | NUR ---
PATIENT SITTING UP IN THE CHAIR AT THE BEDSIDE. PATIENT IS A&OX4. VSS. BOWEL SOUNDS ACTIVE ALL FOUR QUADRANTS. PATIENT TOLERATING DIET WITHOUT ANY COMPLAINTS OF N/V. PATIENT DENIES PAIN. PICC LINE TO RUE. RIGHT LABIA MAJORA REDDENED AND EDEMATOUS. PACKING IN PLACE WITH MESH PANTIES. PACKING CHANGED BY OB-TRAVEL CLERK THIS MORNING. NON-PITTING EDEMA TO FEET BILATERALLY. CALL LIGHT WITHIN REACH. NO NEEDS AT THIS TIME.
[2019-11-23 08:05] VITALS: BP 132/61; PULSE 77; TEMP 98.9
[2019-11-23] MEDS ORDERED: CIPRO 500MG TA500 MG PO (09:10)
--- NOTE | 2019-11-23 09:34 | NUR ---
PATIENT COMPLAINING OF A MIGRAINE-LIKE HEADACHE. PATIENT GIVEN PRN PO DOSE OF TYLENOL. PATIENT DENIES ANY OTHER NEEDS AT THIS TIME.
[2019-11-23 11:01] LABS: BAND 9 % (0-10); EOSINOPHIL 12 % (0-4); LYMPHOCYTE 38 % (20.0-51.0); NEUTROPHILS 35 % (42.0-75.2); PLATELET ESTIMATE INCREASED (NORMAL)
[2019-11-23 11:43] VITALS: BP 150/71; PULSE 69; TEMP 98.3
--- NOTE | 2019-11-23 12:59 | NUR ---
Knurling Machine Operator attended clinical rounds with the team and patient to discharge home today. Patient walked 400 ft with PT and states she is ready to get home. Exercise Ox ordered for patient. SW will continue to monitor for oxygen needs as needed. No additional needs at this time.
--- NOTE | 2019-11-23 13:21 | NUR ---
PATIENT STATES THAT WHEN SHE WENT TO THE RESTROOM THE PACKING CAME OUT OF HER INCISION.
--- NOTE | 2019-11-23 14:02 | NUR ---
PATIENT REFQUIRES 2LPM WITH EXERCISE FOR SPO2 .88%.
[2019-11-23] MEDS ORDERED: ANORO IH (14:18)
[2019-11-23] MEDS ORDERED: ARNUITY IH (14:18)
--- NOTE | 2019-11-23 14:56 | NUR ---
BRI WITH [facility] CALLED. MESSAGE LEFT FOR PICC LINE REMOVAL.
[2019-11-23 16:20] VITALS: BP 150/82; PULSE 75; TEMP 98.5
--- NOTE | 2019-11-23 16:23 | NUR ---
Patient needs 2 liters with ambulation. ALANA faxed order, H&P, Facesheet, and RT assessment to LEONORA Florez at the [facility]. Vikki advised they could not set up home oxygen today, but could tomorrow. ALANA provided this update to Hospitalist and patient. Patient states she is going home no matter what today. Patient states she is willing to private pay for oxygen if it means she can be discharged today. ALANA contacted [facility] who provided private pay prices ($225/ month for concentrator and $50/per tank). Patient states she will pay whatever and wants to get out of here today. ALANA facilitated a phone call between patient and [facility]. Patient paid for one month of oxygen over the phone. [facility] to deliver tank up to patient's room immediately. ALANA provided update to Mile LEA and Saranya MURO. ALANA left a message for Vikki at the [facility]. No additional needs at this time.
--- NOTE | 2019-11-23 17:04 | NUR ---
DISCHARGE INSTRUCTIONS REVIEWED WITH PATIENT. QUESTIONS SOUGHT AND ANSWERED. PATIENT PERSONAL BELONGINGS GATHERED. PICC LINE DISCONTINUED BY [facility]RI WITH [facility]. 02 DELIVERED DURING DISCHARGE INSTRUCTIONS.
--- NOTE | 2019-11-23 17:14 | NUR ---
PATIENT TAKEN TO PERSONAL VEHICLE VIA WHEELCHAIR BY SURGICAL STAFF. PATIENT DISCHARGED.
[2019-11-24] MEDS ORDERED: CIPRO 500MG TA500 MG PO (15:50)
[2019-11-24] MEDS ORDERED: NORCO 325 MG-51 TAB PO (15:50)
== END 2019-11-23 17:14 | disposition home or self-care (01) | DRG 853 ==
LOC: COL.ER 22:58 → EU 11-15 01:36 → ICU 11-15 01:36 → SURG 11-15 13:46 → ICU 11-16 10:30 → MEDICAL 11-21 16:21
PROVIDERS: Internal Medicine Pulmonary Disease; Nurse Practitioner; Nurse Practitioner Family; Obstetrics & Gynecology; Physician Assistant; Student in an Organized Health Care Education/Training Program; ADMIT Internal Medicine
PROC: 0UBM0ZZ Excision of Vulva, Open Approach (ICD-10-PCS; principal; 2019-11-15 12:00)
DX: A41.9 Sepsis, unspecified organism (principal); J96.01 Acute respiratory failure with hypoxia; N76.4 Abscess of vulva; J81.1 Chronic pulmonary edema; B95.1 Streptococcus, group B, as the cause of diseases classified elsewhere; B95.61 Methicillin susceptible Staphylococcus aureus infection as the cause of diseases classified elsewhere; B96.89 Other specified bacterial agents as the cause of diseases classified elsewhere; E11.65 Type 2 diabetes mellitus with hyperglycemia; Z79.4 Long term (current) use of insulin; Z79.84 Long term (current) use of oral hypoglycemic drugs; M25.521 Pain in right elbow; F17.210 Nicotine dependence, cigarettes, uncomplicated; Z86.73 Personal history of transient ischemic attack (TIA), and cerebral infarction without residual deficits; E03.9 Hypothyroidism, unspecified; I25.2 Old myocardial infarction; Z88.5 Allergy status to narcotic agent; Z88.0 Allergy status to penicillin; Z88.8 Allergy status to other drugs, medicaments and biological substances; R19.7 Diarrhea, unspecified; E78.5 Hyperlipidemia, unspecified; F43.10 Post-traumatic stress disorder, unspecified; D06.9 Carcinoma in situ of cervix, unspecified; F32.9 Major depressive disorder, single episode, unspecified; R03.0 Elevated blood-pressure reading, without diagnosis of hypertension; I27.20 Pulmonary hypertension, unspecified; L40.9 Psoriasis, unspecified
CPT/HCPCS: 99223-AI; 99232-AI; 99233-AI; 99239; A4216; C1751; J0456; J0690; J0692; J0696; J1170; J1650; J1815; J1885; J1940; J2060; J2270; J2405; J2704; J3010; J3370; J3475; J3480; J7030; J7050; J7060; Q9967

== ENCOUNTER 2020-07-15 17:43 | Emergency (ER) | payer OTHER ==
[~2020-07-15] VITALS: Ht 175.3 cm; Wt 78.2 kg
[~2020-07-15 17:43] MED LIST changes: +ANORO IH; +ARNUITY IH; +CIPRO 500MG TA500 MG PO
[2020-07-15 17:57] VITALS: TEMP 97.7
[2020-07-15] MEDS ORDERED: BACTRIM DS 8001 TAB PO (19:31)
[2020-07-15] MEDS ORDERED: NORCO 325 MG-51 TAB PO (19:40)
[2020-07-15 19:50] VITALS: BP 131/84; PULSE 110
== END 2020-07-15 20:00 | disposition home or self-care (01) ==
LOC: COL.ER 17:43
DX: L02.411 Cutaneous abscess of right axilla (principal); R59.0 Localized enlarged lymph nodes; F41.9 Anxiety disorder, unspecified; I25.2 Old myocardial infarction; F17.200 Nicotine dependence, unspecified, uncomplicated; Z88.0 Allergy status to penicillin; Z88.5 Allergy status to narcotic agent; Z88.8 Allergy status to other drugs, medicaments and biological substances; Z79.82 Long term (current) use of aspirin; Z79.84 Long term (current) use of oral hypoglycemic drugs

== ENCOUNTER 2021-04-18 09:12 | Emergency (ER) | payer OTHER ==
[~2021-04-18] VITALS: Ht 175.3 cm; Wt 78.2 kg
[~2021-04-18 09:12] MED LIST changes: +BACTRIM DS 8001 TAB PO
[2021-04-18 10:15] LABS: BASO # 0.1 (0.0-0.2); BASO % 0.6 % (0.0-2.0); EOS # 0.2 (0.0-0.7); EOS % 1.5 % (0-4.0); GRAN # 8.7 (1.4-6.5); HEMATOCRIT 41.7 % (37.0-47.0); HEMOGLOBIN 14.9 g/dl (12.5-16.0); LYMPH # 2.7 (1.2-3.4); LYMPH % 22.1 % (20.0-51.0); MEAN CELL VOLUME 89 fl (80.0-100.0); MEAN CORPUSCULAR HEMOGLOBIN 32 pg (27.0-31.0); MEAN CORPUSCULAR HGB CONC 36 g/dl (33.0-37.0); MEAN PLATELET VOLUME 10.2 fl (7.4-10.4); MONO # 0.7 (0.1-0.6); MONO % 5.2 % (1.7-9.3); PLATELET COUNT 254 K/mm3 (130-400); RED BLOOD COUNT 4.68 M/mm3 (4.10-5.30); REDCELL DISTRIBUTION WIDTH-CV 12.1 % (11.5-14.5)
[2021-04-18 10:26] LABS: ACETONE,SERUM NEGATIVE
[2021-04-18 10:29] LABS: ALANINE AMINOTRANSFERASE 18 U/L (4-34); ALKALINE PHOSPHATASE 76 U/L (50-136); ANION GAP 9 mmol/L (7-16); AST,SGOT 28 U/L (15-37); BILIRUBIN,TOTAL 0.4 mg/dL (0.0-1.0); BLOOD UREA NITROGEN 12 mg/dL (7-17); C-REACTIVE PROTEIN 1.3 mg/dL (0.0-0.9); CALCIUM 8.9 mg/dL (8.4-10.2); CARBON DIOXIDE 25 mmol/L (22-30); CHLORIDE 99 mmol/L (98-107); CREATININE, serum 0.59 (0.52-1.25); LIPASE 159 U/L (23-300); POTASSIUM 4.2 mmol/L (3.4-5.0); SODIUM 132 mmol/L (137-145); TOTAL PROTEIN 7.4 gm/dL (6.4-8.2)
[2021-04-18 10:34] LABS: GLUCOSE 454 mg/dL (74-106)
[2021-04-18 10:43] LABS: TROPONIN-I < 0.012 ng/mL (0.000-0.035)
[2021-04-18 11:41] LABS: COLLECTION METHOD CLEAN CATCH
[2021-04-18 11:53] LABS: MUCOUS Present /lpf; PH 6 (5-8); URINE APPEARANCE Hazy; URINE BACTERIA Occasional /hpf; URINE BILIRUBIN Negative (NEGATIVE); URINE BLOOD Negative (NEGATIVE); URINE COLOR Yellow; URINE GLUCOSE 3+ (NEGATIVE); URINE KETONE Negative (NEGATIVE); URINE LEUKOCYTE ESTERASE Trace (NEGATIVE); URINE NITRATE Positive (NEGATIVE); URINE PROTEIN(semi-quant) Negative (NEGATIVE); URINE RBC 0-2 /hpf; URINE UROBILINOGEN Negative (NEGATIVE)
[2021-04-18] MEDS ORDERED: PREDNISONE20 MG PO (13:09)
[2021-04-18 13:20] VITALS: BP 137/82; PULSE 76; TEMP 97.7
== END 2021-04-18 13:20 | disposition home or self-care (01) ==
LOC: COL.ER 09:12
PROVIDERS: Emergency Medicine
DX: J06.9 Acute upper respiratory infection, unspecified (principal); N39.0 Urinary tract infection, site not specified; E11.65 Type 2 diabetes mellitus with hyperglycemia; J44.9 Chronic obstructive pulmonary disease, unspecified; M79.7 Fibromyalgia; I25.2 Old myocardial infarction; E11.40 Type 2 diabetes mellitus with diabetic neuropathy, unspecified; E11.319 Type 2 diabetes mellitus with unspecified diabetic retinopathy without macular edema; Z86.73 Personal history of transient ischemic attack (TIA), and cerebral infarction without residual deficits; Z87.891 Personal history of nicotine dependence; Z79.4 Long term (current) use of insulin; Z79.899 Other long term (current) drug therapy; Z79.1 Long term (current) use of non-steroidal anti-inflammatories (NSAID); Z20.822 Contact with and (suspected) exposure to COVID-19
CPT/HCPCS: J1815; J7030; J7512

== ENCOUNTER 2021-08-09 04:07 | Emergency (ER) | payer OTHER ==
[~2021-08-09 04:07] MED LIST changes: +PREDNISONE20 MG PO; -SYNTHROID0.05 MG/TA PO; +SYNTHROID0.088 MG/T PO
[2021-08-09 04:40] VITALS: TEMP 100
[2021-08-09] MEDS ORDERED: ZOFRAN ODT4 MG PO (05:00)
[2021-08-09 05:14] VITALS: BP 116/74; PULSE 111
== END 2021-08-09 05:14 | disposition home or self-care (01) ==
LOC: COL.ER 04:07
DX: U07.1 COVID-19 (principal); R00.0 Tachycardia, unspecified; E03.9 Hypothyroidism, unspecified; E11.9 Type 2 diabetes mellitus without complications; F32.A Depression, unspecified; Z79.4 Long term (current) use of insulin; I25.2 Old myocardial infarction; Z86.73 Personal history of transient ischemic attack (TIA), and cerebral infarction without residual deficits; Z79.899 Other long term (current) drug therapy; Z79.890 Hormone replacement therapy; Z79.84 Long term (current) use of oral hypoglycemic drugs; Z79.82 Long term (current) use of aspirin

== ENCOUNTER 2021-08-15 09:03 | Emergency (ER) | payer OTHER ==
[~2021-08-15] VITALS: Ht 175.3 cm; Wt 77.3 kg
[2021-08-15 09:19] VITALS: BP 153/84; PULSE 71; TEMP 98.3
[2021-08-15] MEDS ORDERED: NOVOLOG FLEX100 U/ML SQ (09:28)
[2021-08-15] MEDS ORDERED: PROAIR HFA0.09 MG/AC IH (09:29)
[2021-08-15] MEDS ORDERED: VITAMIN D31000 I1 PO (09:29)
== END 2021-08-15 10:30 | disposition left against medical advice (07) ==
LOC: COL.ER 09:03
DX: R06.02 Shortness of breath (principal); E11.40 Type 2 diabetes mellitus with diabetic neuropathy, unspecified; Z79.4 Long term (current) use of insulin; Z79.84 Long term (current) use of oral hypoglycemic drugs

== ENCOUNTER 2021-10-11 09:07 | Emergency (ER) | payer OTHER ==
[~2021-10-11] VITALS: Ht 175.3 cm; Wt 78.2 kg
[~2021-10-11 09:07] MED LIST changes: +NOVOLOG FLEX100 U/ML SQ; +VITAMIN D31000 I1 PO
[2021-10-11 09:12] VITALS: BP 153/94; TEMP 98.9
[2021-10-11] MEDS ORDERED: CIPRO 500MG TA500 MG PO (10:02)
[2021-10-11] MEDS ORDERED: NORCO 325 MG-51 TAB PO (10:11)
[2021-10-11 10:20] VITALS: PULSE 93
[2021-10-11] MEDS ORDERED: FLAGYL500 MG PO (11:03)
== END 2021-10-11 10:20 | disposition home or self-care (01) ==
LOC: COL.ER 09:07
DX: R05.9 Cough, unspecified (principal)

== ENCOUNTER 2022-09-12 16:37 | Emergency (ER) | payer OTHER ==
[~2022-09-12] VITALS: Ht 175.3 cm; Wt 77.3 kg
[2022-09-12 18:33] LABS: BASO # 0.1 K/mm3 (0.0-0.2); BASO % 0.6 % (0.0-2.0); EOS # 0.1 K/mm3 (0.0-0.7); EOS % 0.6 % (0.0-4.0); GRAN # 9.4 K/mm3 (1.4-6.5); GRAN % 82.4 % (42.2-75.2); HEMATOCRIT 42.4 % (37.0-47.0); LYMPH # 0.9 K/mm3 (1.2-3.4); LYMPH % 7.4 % (20.0-51.0); MEAN CELL VOLUME 90 fl (80.0-100.0); MEAN CORPUSCULAR HEMOGLOBIN 32 pg (27-31); MEAN CORPUSCULAR HGB CONC 35 g/dl (33.0-37.0); MONO # 0.9 K/mm3 (0.1-0.6); MONO % 8.2 % (1.7-9.3); PLATELET COUNT 188 K/mm3 (130-400); RED BLOOD COUNT 4.73 M/mm3 (4.10-5.30); REDCELL DISTRIBUTION WIDTH-CV 11.7 % (11.5-14.5)
[2022-09-12 18:58] LABS: TROPONIN-I < 0.010 ng/mL (0.00-0.033)
[2022-09-12 19:04] LABS: GLUCOSE 409 mg/dL (70-99)
[2022-09-12 19:05] LABS: ANION GAP 15 mmol/L (7-16); CALCIUM 10.1 mg/dL (8.4-10.2); CARBON DIOXIDE 22 mmol/L (22-29); CHLORIDE 93 mmol/L (98-107); CREATININE, serum 1.27 mg/dL (0.57-1.11); POTASSIUM 3.6 mmol/L (3.5-4.5); SODIUM 130 mmol/L (136-145)
[2022-09-12 19:06] LABS: ALANINE AMINOTRANSFERASE 29 U/L (0-55); ALBUMIN 3.2 gm/dL (3.5-5.0); ALKALINE PHOSPHATASE 117 U/L (40-150); AST,SGOT 26 U/L (5-34); LIPASE 18 U/L (8-78); TOTAL PROTEIN 8.3 gm/dL (6.2-8.1)
[2022-09-12 19:11] LABS: ACETONE,SERUM SMALL
[2022-09-12 19:16] LABS: BLOOD UREA NITROGEN 16 mg/dL (7-19)
[2022-09-12 19:51] LABS: COLLECTION METHOD CLEAN CATCH
[2022-09-12 20:26] LABS: URINE APPEARANCE Cloudy (CLEAR/HAZY); URINE COLOR Yellow (YELLOW)
[2022-09-12 20:27] LABS: URINE BLOOD 2+ (NEGATIVE); URINE GLUCOSE 2+ (NEGATIVE); URINE NITRATE Positive (NEGATIVE); URINE PROTEIN(semi-quant) 2+ (NEGATIVE)
[2022-09-12 20:28] LABS: URINE KETONE 4+ (NEGATIVE)
[2022-09-12 20:30] LABS: MUCOUS Present (NOT PRESENT); SQUAMOUS EPITHELIAL 0-2 /hpf (0-10); URINE BACTERIA Rare /hpf (NONE SEEN)
[2022-09-12 20:46] VITALS: TEMP 103.5
[2022-09-12] MEDS ORDERED: ZITHROMAX Z PA250 MG PO (23:49)
[2022-09-12] MEDS ORDERED: CEFTIN500 MG PO (23:49)
[2022-09-13 00:22] VITALS: BP 128/81; PULSE 89
[2022-09-13] MEDS ORDERED: NAPROSYN500 MG PO (17:08)
[2022-09-13] MEDS ORDERED: LIPITOR20 MG PO (17:12)
[2022-09-13] MEDS ORDERED: 00186-0370-20 IH (17:21)
[2022-09-13] MEDS ORDERED: SPIRIVA RE2.5 MCG/Ac IH (17:22)
[2022-09-13] MEDS ORDERED: IMDUR 30MG30 MG/TAB PO (17:23)
[2022-09-13] MEDS ORDERED: PLAVIX 75MG TAB75 MG PO (17:27)
== END 2022-09-13 00:23 | disposition home or self-care (01) ==
LOC: COL.ER 16:37
PROVIDERS: Nurse Practitioner Family
DX: N39.0 Urinary tract infection, site not specified (principal); J18.9 Pneumonia, unspecified organism; E87.1 Hypo-osmolality and hyponatremia; E11.9 Type 2 diabetes mellitus without complications; F17.200 Nicotine dependence, unspecified, uncomplicated; Z88.0 Allergy status to penicillin; Z28.310 Unvaccinated for COVID-19; Z20.822 Contact with and (suspected) exposure to COVID-19
CPT/HCPCS: J0696; J2405; J7030; Q9967

== ENCOUNTER 2022-09-13 13:46 | Inpatient (IN) | payer OTHER ==
[~2022-09-13] VITALS: Ht 175.3 cm; Wt 80.4 kg
[~2022-09-13 13:46] MED LIST changes: +CEFTIN500 MG PO; +ZITHROMAX Z PA250 MG PO
[2022-09-13 14:09] LABS: BASO # 0.1 K/mm3 (0.0-0.2); BASO % 0.8 % (0.0-2.0); EOS # 0.1 K/mm3 (0.0-0.7); EOS % 0.6 % (0.0-4.0); GRAN # 8.5 K/mm3 (1.4-6.5); GRAN % 81.4 % (42.2-75.2); LYMPH # 0.7 K/mm3 (1.2-3.4); LYMPH % 6.8 % (20.0-51.0); MEAN CELL VOLUME 90 fl (80.0-100.0); MEAN CORPUSCULAR HGB CONC 35 g/dl (33.0-37.0); MEAN PLATELET VOLUME 10.8 fl (7.4-10.4); MONO % 9.6 % (1.7-9.3); PLATELET COUNT 170 K/mm3 (130-400); RED BLOOD COUNT 4.06 M/mm3 (4.10-5.30); REDCELL DISTRIBUTION WIDTH-CV 11.9 % (11.5-14.5)
[2022-09-13 14:10] LABS: HEMATOCRIT 36.4 % (37.0-47.0); HEMOGLOBIN 12.8 g/dl (12.5-16.0); MEAN CORPUSCULAR HEMOGLOBIN 32 pg (27-31)
[2022-09-13 14:22] LABS: COLLECTION METHOD CLEAN CATCH
[2022-09-13 14:29] LABS: ALBUMIN 2.6 gm/dL (3.5-5.0); BILIRUBIN,TOTAL 1.1 mg/dL (0.2-1.2); C-REACTIVE PROTEIN 31.92 mg/dL (0.00-0.50); CALCIUM 9.5 mg/dL (8.4-10.2); CREATININE, serum 1.19 mg/dL (0.57-1.11); POTASSIUM 3.7 mmol/L (3.5-4.5); TOTAL PROTEIN 7.2 gm/dL (6.2-8.1)
[2022-09-13 14:30] LABS: MUCOUS Present (NOT PRESENT); SQUAMOUS EPITHELIAL 0-2 /hpf (0-10); URINE BACTERIA None Seen /hpf (NONE SEEN); URINE RBC 0-2 /hpf (0-2)
[2022-09-13 14:33] LABS: PH 5.5 (5.0-8.5); URINE APPEARANCE Clear (CLEAR/HAZY); URINE COLOR Yellow (YELLOW); URINE GLUCOSE 2+ (NEGATIVE)
[2022-09-13 14:34] LABS: URINE BLOOD 1+ (NEGATIVE); URINE KETONE 3+ (NEGATIVE); URINE NITRATE Negative (NEGATIVE); URINE PROTEIN(semi-quant) 1+ (NEGATIVE)
[2022-09-13 16:10] VITALS: BP 128/79; PULSE 99; TEMP 98.5
--- NOTE | 2022-09-13 16:20 | NUR ---
Pt admitted to room 307 from ED. Pt A/O x4. Denies pain. Reports SOA while lying on back and with exertion only. LS clear. Reports dry cough. On RA with SpO2 high 90's.
--- NOTE | 2022-09-13 16:49 | NUR ---
Dr. Bojorquez at bedside.
[2022-09-13] MEDS ORDERED: NAPROSYN500 MG PO (17:08)
[2022-09-13] MEDS ORDERED: LIPITOR20 MG PO (17:12)
[2022-09-13] MEDS ORDERED: 00186-0370-20 IH (17:21)
[2022-09-13] MEDS ORDERED: SPIRIVA RE2.5 MCG/Ac IH (17:22)
[2022-09-13] MEDS ORDERED: IMDUR 30MG30 MG/TAB PO (17:23)
[2022-09-13] MEDS ORDERED: PLAVIX 75MG TAB75 MG PO (17:27)
[2022-09-13 19:40] VITALS: BP 125/62; PULSE 121; TEMP 101.1
[2022-09-14] VITALS (8 sets, daily range): BP systolic 109–138; BP diastolic 54–67; PULSE 92–124; TEMP 96–101.6
[2022-09-14 06:38] LABS: BASO % 0.5 % (0.0-2.0); EOS # 0.1 K/mm3 (0.0-0.7); EOS % 0.7 % (0.0-4.0); GRAN # 6.2 K/mm3 (1.4-6.5); GRAN % 74.8 % (42.2-75.2); LYMPH # 0.9 K/mm3 (1.2-3.4); LYMPH % 11.3 % (20.0-51.0); MEAN CELL VOLUME 90 fl (80.0-100.0); MEAN CORPUSCULAR HGB CONC 35 g/dl (33.0-37.0); MEAN PLATELET VOLUME 10.1 fl (7.4-10.4); MONO % 12.1 % (1.7-9.3); PLATELET COUNT 158 K/mm3 (130-400); RED BLOOD COUNT 3.37 M/mm3 (4.10-5.30); REDCELL DISTRIBUTION WIDTH-CV 11.9 % (11.5-14.5)
[2022-09-14 06:39] LABS: HEMATOCRIT 30.3 % (37.0-47.0); MEAN CORPUSCULAR HEMOGLOBIN 31 pg (27-31)
[2022-09-14 06:41] LABS: HEMOGLOBIN 10.5 g/dl (12.5-16.0)
[2022-09-14 06:58] LABS: CALCIUM 8.7 mg/dL (8.4-10.2); CREATININE, serum 0.76 mg/dL (0.57-1.11)
[2022-09-14 07:10] LABS: POTASSIUM 2.8 mmol/L (3.5-4.5)
--- NOTE | 2022-09-14 07:24 | NUR ---
PT HAD AN OK NIGHT. SHE CONTINUED TO HAVE INCREASED FEVERS T-MAX OF 101.6, TYLENOL WAS GIVEN. THE PATIENT STATES THAT SHE HAS HAD INCREASING TINGLING OF HER PERIPHERAL EXTREMITIES. NO OTHER CONCERNS WITH THIS PATIENT.
--- NOTE | 2022-09-14 07:42 | NUR ---
JINA Beaver notified of low potassium 2.8 and low blood glucose 65. Telephone orders to start potassium protocol given.
--- NOTE | 2022-09-14 09:45 | NUR ---
Several visit attempts: Jewel Gauger left card offering God's Blessings and Spiritual Care to Ramila. Nurse will make sure Ramila receives the card.
--- NOTE | 2022-09-14 10:53 | NUR ---
PT AWAKE AND ALERT IN BED. UNSTEADY ASSIST TO BATHROOM. COMPLAINTS OF TINGLING/NUMBNESS IN LOWER AND UPPER EXTREMITIES. COMPLAINTS OF SHOOTING PAIN DOWN LEGS. REPOSITIONED AND ASSISTED TO BATHROOM. BED IN LOWEST POSITION WITH CALL LIGHT WITHIN REACH. AM MEDICATIONS AND ASSESSMENT COMPLETE.
--- NOTE | 2022-09-14 11:31 | NUR ---
Patient was admitted to Inpatient Medical on 09-13-22. Risk Control Director met with patient in her room in order to conduct care managment intake and discharge planning. PAtient reported that she lives in [place], [place] with her son, Jean-Claude P:[phone]. Patient reports that she utilizes a walker and a cane at home, provided by [facility] the [facility]. Patient reports that she utilizes O2 at home, also provided by the [facility]. PAtient reports to recieve all outpatient care through the [facility] and has no other insurance. Patient reports that she does not have AD at this time and is not interested in AD paperwork during inpatient care. Patient intends on discharging home once medically cleared.
--- NOTE | 2022-09-15 00:13 | NUR ---
NURSING SHIFT ASSESSMENT COMPLETED. THE PATIENT WAS ALERT AND ORIENTED. THE PATIENT DENIED NEEDS AND HAD JUST FINISHED HER SHOWER. NO DISTRESS NOTED. EVENING MEDICATIONS DISCUSSED AND A SNACK WAS OFFERED AND ACCEPTED. THE PLAN OF CARE DISCUSSED WELL. CALL LIGHT WITHIN REACH. BED IN LOW POSITION AND BED ALARM ON.
[2022-09-15 03:31] VITALS: BP 145/49; PULSE 109; TEMP 101.2
[2022-09-15 06:41] LABS: BASO % 0.3 % (0.0-2.0); EOS # 0.1 K/mm3 (0.0-0.7); EOS % 1.1 % (0.0-4.0); GRAN # 4.5 K/mm3 (1.4-6.5); GRAN % 69.7 % (42.2-75.2); HEMOGLOBIN 10.5 g/dl (12.5-16.0); LYMPH # 0.9 K/mm3 (1.2-3.4); LYMPH % 13.9 % (20.0-51.0); MEAN CELL VOLUME 92 fl (80.0-100.0); MEAN CORPUSCULAR HEMOGLOBIN 32 pg (27-31); MEAN CORPUSCULAR HGB CONC 35 g/dl (33.0-37.0); MEAN PLATELET VOLUME 10.7 fl (7.4-10.4); MONO # 0.9 K/mm3 (0.1-0.6); MONO % 14.4 % (1.7-9.3); PLATELET COUNT 163 K/mm3 (130-400); RED BLOOD COUNT 3.31 M/mm3 (4.10-5.30); REDCELL DISTRIBUTION WIDTH-CV 12.3 % (11.5-14.5)
[2022-09-15 06:52] LABS: CALCIUM 8.7 mg/dL (8.4-10.2); CREATININE, serum 0.74 mg/dL (0.57-1.11); HEMATOCRIT 30.3 % (37.0-47.0); MAGNESIUM 1.5 mg/dL (1.6-2.6); POTASSIUM 3.5 mmol/L (3.5-4.5)
[2022-09-15 07:27] VITALS: BP 124/53; PULSE 95; TEMP 99.3
--- NOTE | 2022-09-15 08:00 | NUR ---
Patient is resting in bed, alert and oriented x 4, 2L O2 NC. Getting NS 75 ml/hr. She states does not want to eat. Assessment completed, no other needs at this time, call light within reach.
[2022-09-15 12:03] VITALS: BP 121/61; PULSE 98; TEMP 98.2
[2022-09-15 15:30] VITALS: BP 119/62; PULSE 91; TEMP 98.8
--- NOTE | 2022-09-15 18:41 | NUR ---
Patient states she can not tolerated food, she feels once she eats she will vomit. Pt blood sugar was low once today (70's), eating small quantities of food. Continue getting antibiotics as prescribed. Report will be given to night RN.
[2022-09-15 20:07] VITALS: BP 131/78; PULSE 93; TEMP 98.3
--- NOTE | 2022-09-15 20:10 | NUR ---
Pt shift assessment finished around 1944. A&Ox4. Pt reports lower back pain for which she requested pain med. LFA peripheral line is CDI. On 3L of O2 per NC. Reports sensation of full stomach for which she reports she doesn't want to eat since she feels she could end up throwing up. Lidocaine patch removed. Medications given per emar. Belongings and call light within reach.
--- NOTE | 2022-09-15 20:40 | NUR ---
1855 PRESENTED TO ROOM TO ADMINISTER SVN AND INSTRUCT PT ON INCENTIVE SPIROMETER. PT REPORTS THAT SHE WEARS OXYGEN AT HOME. WHEN ASKED HOW MUCH OXYGEN SHE WEARS SHE STATED 3%. WAS NOT ABLE TO GIVE ME ANY DEFINITIVE NUMBER OF HOME O2 SETTINGS.
[2022-09-15 23:25] VITALS: BP 127/66; PULSE 94; TEMP 98
[2022-09-16 03:08] VITALS: BP 143/66; PULSE 100; TEMP 99
[2022-09-16 06:34] LABS: HEMOGLOBIN 10.5 g/dl (12.5-16.0); MEAN CELL VOLUME 94 fl (80.0-100.0); MEAN CORPUSCULAR HEMOGLOBIN 31 pg (27-31); MEAN CORPUSCULAR HGB CONC 33 g/dl (33.0-37.0); MEAN PLATELET VOLUME 10.5 fl (7.4-10.4); PLATELET COUNT 202 K/mm3 (130-400); RED BLOOD COUNT 3.39 M/mm3 (4.10-5.30); REDCELL DISTRIBUTION WIDTH-CV 12.6 % (11.5-14.5)
[2022-09-16 06:41] LABS: HEMATOCRIT 31.7 % (37.0-47.0)
[2022-09-16 06:58] LABS: C-REACTIVE PROTEIN 10.56 mg/dL (0.00-0.50); CALCIUM 8.8 mg/dL (8.4-10.2); CREATININE, serum 0.68 mg/dL (0.57-1.11); MAGNESIUM 1.8 mg/dL (1.6-2.6); POTASSIUM 3.9 mmol/L (3.5-4.5)
[2022-09-16 07:24] LABS: BAND 14 % (0-10); EOSINOPHIL 2 % (0-4); LYMPHOCYTE 20 % (20.0-51.0); NEUTROPHILS 59 % (42.0-75.2)
[2022-09-16 07:25] LABS: PLATELET ESTIMATE NORMAL (NORMAL)
[2022-09-16 07:53] VITALS: BP 115/54; PULSE 95; TEMP 99
--- NOTE | 2022-09-16 08:00 | NUR ---
Patient is resting in bed watching TV. Alert and oriented x 4. No fevers at night. Continue gettin NS and antibiotics per orders. Assisted to the restroom, she uses walker, Assessment completed, no other needs at this time. Call light within reach.
[2022-09-16 11:56] VITALS: BP 135/71; PULSE 88; TEMP 98.6
[2022-09-16 15:47] VITALS: BP 131/58; PULSE 98; TEMP 98.3
--- NOTE | 2022-09-16 16:24 | NUR ---
Pt was found sleeping and covered in sweat. BG 66. 15 mg dextrose chew provided. Now BG 81. Hygiene and change of linens provided.
--- NOTE | 2022-09-16 18:34 | NUR ---
Patient has been sleeping most of the day. She is not eating well. She had a hypoglycemic episode. Continues getting NS and antibiotics per orders. Report will be given to night RN.
[2022-09-16 20:35] VITALS: BP 143/73; PULSE 81; TEMP 98.2
[2022-09-16 23:28] VITALS: BP 145/68; PULSE 88; TEMP 98.3
--- NOTE | 2022-09-17 00:07 | NUR ---
NURSING SHIFT ASSESSMENT COMPLETED. IT WAS NOTED THAT THE PTS BLOOD SUGARS HAD BEEN ON THE LOWER SIDE TODAY. THE BLOOD SUGAR FOR THE EVENING WAS 136. DR. FRAUSTO WAS CONTACTED REGARDING THE 30 UNITS OF LEVEMIR THAT WAS SCHEDULED AT BEDTIME. THE ORDER WAS CHANGED TO GIVE 25 UNITS OF LEVEMIR AND NO INSULIN WAS REQUIRED FOR THE SLIDING SCALE ORDER. WILL MONITOR. THE PATIENT DENIED PAIN OR DISCOMFORT. FRESH WATER WAS PROVIDED AND A BEDTIME SNACK. NO OTHER NEEDS AT THIS TIME. BED ALARM ON . CALL LIGHT WITHIN REACH. BED IN LOW POSITION.
[2022-09-17 04:38] VITALS: BP 130/55; PULSE 91; TEMP 99.3
--- NOTE | 2022-09-17 04:49 | NUR ---
PATIENTS BG 86. THE PATIENT PROVIDED 2 APPLE JUICES AND A PACKAGE OF JOCELYNN CRACKERS. WILL MONITOR.
[2022-09-17 07:30] VITALS: BP 113/56; PULSE 94; TEMP 98.8
--- NOTE | 2022-09-17 09:15 | NUR ---
PT AWAKE, ALERT AND ORIENTED IN BED. STATES HER NUMBNESS/TINGLING IN ALL EXTREMITIES STILL PERSISTS BUT HAS IMPROVED. OCCASIONAL SHOOTING PAIN DOWN BLE. ASSISTED TO BATHROOM, GAIT IS STEADY. BED IN LOWEST POSITION, CALL LIGHT WITHIN REACH.
[2022-09-17 09:52] LABS: MEAN CELL VOLUME 93 fl (80.0-100.0); MEAN CORPUSCULAR HGB CONC 34 g/dl (33.0-37.0); MEAN PLATELET VOLUME 10.2 fl (7.4-10.4); PLATELET COUNT 242 K/mm3 (130-400); RED BLOOD COUNT 3.11 M/mm3 (4.10-5.30); REDCELL DISTRIBUTION WIDTH-CV 12.6 % (11.5-14.5)
[2022-09-17 10:03] LABS: HEMATOCRIT 28.8 % (37.0-47.0); HEMOGLOBIN 9.7 g/dl (12.5-16.0); MEAN CORPUSCULAR HEMOGLOBIN 31 pg (27-31)
[2022-09-17 10:04] LABS: CALCIUM 8.7 mg/dL (8.4-10.2); CREATININE, serum 0.75 mg/dL (0.57-1.11)
[2022-09-17] MEDS ORDERED: MONODOX100 PO (10:42)
[2022-09-17] MEDS ORDERED: LEVAQUIN 750MG750 M1 PO (10:44)
[2022-09-17 11:00] LABS: BAND 10 % (0-10); EOSINOPHIL 1 % (0-4); LYMPHOCYTE 20 % (20.0-51.0); NEUTROPHILS 63 % (42.0-75.2); PLATELET ESTIMATE NORMAL (NORMAL)
[2022-09-17 11:12] VITALS: BP 133/66; PULSE 88; TEMP 98.9
[2022-09-17] MEDS ORDERED: ASPIRIN 81M81 MG/TA2 PO (11:26)
--- NOTE | 2022-09-17 13:07 | NUR ---
Pt discharged to home. Educated on new medications and discharge instructions, pt verbalized understanding. IV removed and wheeled out to car and transferred safely by administrative nursing supervisor.
== END 2022-09-17 13:09 | disposition home or self-care (01) | DRG 871 ==
LOC: COL.ER 13:46 → MEDICAL 15:31
PROVIDERS: Emergency Medicine; Internal Medicine; Physician Assistant; ADMIT Internal Medicine
DX: A41.9 Sepsis, unspecified organism (principal); J18.9 Pneumonia, unspecified organism; N39.0 Urinary tract infection, site not specified; N17.9 Acute kidney failure, unspecified; E87.20 Acidosis, unspecified; N12 Tubulo-interstitial nephritis, not specified as acute or chronic; J96.11 Chronic respiratory failure with hypoxia; E11.65 Type 2 diabetes mellitus with hyperglycemia; E03.9 Hypothyroidism, unspecified; M79.7 Fibromyalgia; B96.20 Unspecified Escherichia coli [E. coli] as the cause of diseases classified elsewhere; E87.6 Hypokalemia; E83.42 Hypomagnesemia; E11.40 Type 2 diabetes mellitus with diabetic neuropathy, unspecified; L40.50 Arthropathic psoriasis, unspecified; F43.10 Post-traumatic stress disorder, unspecified; F17.210 Nicotine dependence, cigarettes, uncomplicated; J44.9 Chronic obstructive pulmonary disease, unspecified; E83.52 Hypercalcemia; F32.A Depression, unspecified; E78.5 Hyperlipidemia, unspecified; E11.51 Type 2 diabetes mellitus with diabetic peripheral angiopathy without gangrene; I25.10 Atherosclerotic heart disease of native coronary artery without angina pectoris; E11.319 Type 2 diabetes mellitus with unspecified diabetic retinopathy without macular edema; Z79.890 Hormone replacement therapy; I25.2 Old myocardial infarction; Z88.5 Allergy status to narcotic agent; Z88.0 Allergy status to penicillin; Z88.8 Allergy status to other drugs, medicaments and biological substances; Z86.73 Personal history of transient ischemic attack (TIA), and cerebral infarction without residual deficits; Z79.4 Long term (current) use of insulin; Z79.2 Long term (current) use of antibiotics
CPT/HCPCS: A9284; J0696; J1644; J1815; J3475; J7030; Q9967